=== PATIENT | female | born 1955 | race Caucasian/White ===

== ENCOUNTER 2025-04-18 13:54 | Emergency (ER) | payer MEDICARE, MEDICAID ==
[~2025-04-18] VITALS: Ht 167.6 cm; Wt 73.0 kg
[~2025-04-18 13:54] MED LIST: AMLO2.5T2 PO; ATOR40TA71 PO; DULO20CA50 PO; GABA-535 PO; HYDR-3686 PO; IPRA4AER INH; LOP25T PO; NALT50TA5 PO; PANT-47 PO
[2025-04-18 13:56] VITALS: BP 140/75; PULSE 88; RESP 20; O2SAT 95
--- NOTE | 2025-04-18 14:14 | Physician Documentation ---
History of Present Illness ~ Chief Complaint: ETOH Withdrawl Stated Complaint: ALCOHOL WITHDRAWAL Time Seen by MD: 14:03 Mode of Arrival: EMS, Stretcher HPI 69-year-old female presents to the ED with a complaint of ETOH withdrawal she states she drinks a half a gal of hard alcohol daily. His last drink that she had was 14 hours ago. Denies any history of seizure or tremors. But she says she has had some occasions where she has visual hallucinations. Primary complaint is shakiness and anxiety right now. She states she does want to drink but does not have a plan on how to stop drinking. Currently denies any chest pain nausea dizziness vomiting or seizures Tetanus within 5 years?: Yes Medication Reconciliation Allergies: Coded Allergies: cephalexin (Unverified Allergy, Unknown, 02/16/25) Scheduled Amlodipine* (Norvasc*), 1 TAB PO DAILY, (Reported) Atorvastatin Calcium (Atorvastatin Calcium), 1 TAB PO DAILY Chlordiazepoxide Hcl (Librium), 25 MG PO TID Duloxetine Hcl* (Cymbalta*), 20 MG PO DAILY, (Reported) Gabapentin (Gabapentin), 1 CAP PO Q8H, (Reported) Hydroxyzine Hcl* (Atarax*), 1 TAB PO BID, (Reported) Ipratropium/Albuterol Sulfate (Combivent Respimat Inhal Lead), 2 PUFFS INH Q8H, (Reported) Metoprolol Tartrate* (Lopressor tablet*), 25 MG PO BID Naltrexone Hcl (Naltrexone Hcl), 50 MG PO DAILY Pantoprazole Sodium (PROTONIX tablet), 1 TAB PO DAILY, (Reported) Past Medical History Past Medical History: No Pertinent History Patient History: FH: alcoholism FATHER Drug Use: none Lives In: Home Physical Exam Vital Signs: Heart Rate: 88, Respiratory Rate: 20, BP: 140/75, Pulse Oximetry: 95, Weight: 73.000 Oxygen Flow Rate: 0 Progress Results/Orders Results/Orders Completed Orders - ALEXANDER DAVIS NP Diazepam Inj (Valium Inj) (04/18/25 14:05) Normal Saline 1000ml (0.9% Sodium Chlori (04/18/25 14:05) Urinalysis, Cult If Indicated (04/18/25 14:03) Cbc/Diff (04/18/25 14:03) BMP (04/18/25 14:03) Lipase (04/18/25 14:03) CMP (04/18/25 14:03) Medications Received in ER Medications (Trade) Dose Ordered Sig/Vani Route PRN Reason Start Time Stop Time Status Last Admin Dose Admin (Valium inj) 10 mg ONCE ONCE IV 04/18/25 14:05 04/18/25 14:06 DC 04/18/25 14:24 10 MG (0.9% sodium chloride (NS) 1000ml IV soln) 1,000 ml ONCE ONCE IVB 04/18/25 14:05 04/18/25 14:06 DC 04/18/25 14:24 1,000 ML Vital Signs 04/18/25 04/18/25 13:56 14:02 Pulse 88 Resp 20 B/P (MAP) 140/75 Pulse Ox 95 O2 Flow Rate 0 Laboratory Tests Test 04/18/25 14:16 04/18/25 15:04 White Blood Count 7.8 Red Blood Count 3.55 L Hemoglobin 12.0 Hematocrit 34.6 L Mean Corpuscular Volume 97.3 Mean Corpuscular Hemoglobin 33.7 H Mean Corpuscular Hemoglobin Concent 34.7 Red Cell Distribution Width 14.2 Platelet Count 334 Mean Platelet Volume 5.7 L Neutrophils (%) (Auto) 63.0 Lymphocytes (%) (Auto) 27.6 Monocytes (%) (Auto) 8.4 Eosinophils (%) (Auto) 0.5 Basophils (%) (Auto) 0.5 Neutrophils # (Auto) 4.9 Lymphocytes # (Auto) 2.1 Monocytes # (Auto) 0.7 Eosinophils # (Auto) 0.0 Basophils # (Auto) 0.0 CBC Comment Sodium Level 138 Potassium Level 3.6 Chloride Level 100 Carbon Dioxide Level 28.3 Anion Gap 10 Blood Urea Nitrogen 11 Creatinine 0.69 Estimated GFR/1.73 m2 85 BUN/Creatinine Ratio 15.9 Glucose Level 109 H Calcium Level 9.2 Total Bilirubin 1.1 H Aspartate Amino Transf (AST/SGOT) 32 Alanine Aminotransferase (ALT/SGPT) 51 Alkaline Phosphatase 168 H Total Protein 8.3 H Albumin 4.0 Globulin 4.3 Albumin/Globulin Ratio 0.9 L Lipase 28 Chemistry Comments Urine Specimen Description Cln catch midstream Urine Color Yellow Urine Clarity Clear Urine pH 7.0 Urine Specific [place] 1.010 Urine Protein Negative Urine Glucose (UA) Negative Urine Ketones Negative Urine Occult Blood Negative Urine Nitrite Negative Urine Bilirubin Negative Urine Urobilinogen 0.2 Urine Leukocyte Esterase Negative Urine Culture Indicated Not ind Volume Urine Centrifuged 10 ml Urine Comment Medical Decision Making Findings Patient received fluids and 10 mg of Valium which appears to have stabilized her alcohol withdrawal she has not presented with more than mild tremulousness throughout her stay. I discussed treatment options with the patient and through shared decision-making we decided on a tapering dose of Librium to help her avoid [id number] alcohol withdrawal. He really needs to follow up in the outpatient setting because she was requesting various modalities that can not be followed up with in the ER. I discussed possible addiction Specialists locally. And gave her those resources. At this time, she presents safe for discharge with the Librium prescription. Differential Dx:Considerations: Intoxication - ETOH, Intoxication - other drug, Sub. Abuse -continuous, Sub. Abuse-intermittent, Skull fracture, Fracture - other bone, Personality disorder, Closed head injury, Cervical spine injury, Abrasion, Confusion, Hematoma, Laceration, Foreign body, Dehydration, Encephalopathy, Hepatitis, Pancreatitis, Thiamine deficiency, Other Departure Disposition: 01 HOME / SELF CARE / HOMELESS Impression: Primary Impression: Alcohol withdrawal syndrome Condition: Stable Discharge Instructions: Alcohol Intoxication, Alcohol Withdrawal Syndrome, [id number] Referrals: NO PRIMARY CARE PROVIDER (PCP) Prescriptions Chlordiazepoxide Hcl (Librium) 25 Mg Capsule 25 MG PO TID for alcohol withdrawl for 5 Days, #15 CAP 0 Refills Prov: ALEXANDER DAVIS NP 04/18/25 Education Educated: Patient Educated regarding: diagnosis Signature Scribe Signature: e Attestation: Scribed for Alexander Davis Oven Unloader by Alexander Blanc NP . 04/18/25 18:36 ALEXANDER DAVIS NP Apr 18, 2025 14:14
[2025-04-18 14:22] LABS: MEAN PLATELET VOLUME 5.7 FL (7.4-10.4); RED CELL DISTRIBUTION WIDTH 14.2 % (11.5-14.5)
[2025-04-18] MEDS: normal saline 1000ML IV soln IVB ONE (14:24)
[2025-04-18] MEDS: diazepam inj 5 MG/ML inj. IV ONE (14:24)
[2025-04-18 14:51] LABS: CREATININE 0.69 MG/DL (0.40-0.90); TOTAL CARBON DIOXIDE 28.3 MMOL/L (24-32); eCRCL 74 ML/MIN; eGFR 85 ML/MIN
[2025-04-18 15:12] LABS: LEUKOCYTE ESTERASE ,URINE NEGATIVE (Neg); NITRITES, URINE NEGATIVE (Neg); OCCULT BLOOD,URINE NEGATIVE (Neg)
[2025-04-18 15:13] LABS: UA COLLECTION TYPE CLN CATCH MIDSTREAM
[2025-04-18] MEDS ORDERED: CHLO25CA10 PO (16:05)
== END 2025-04-18 16:42 | disposition home or self-care (01) ==
LOC: ER 13:55
DX: F10.239 Alcohol dependence with withdrawal, unspecified (principal); F41.9 Anxiety disorder, unspecified; Z88.1 Allergy status to other antibiotic agents; Y90.9 Presence of alcohol in blood, level not specified
CPT/HCPCS: 36415; 80053; 81003; 83690; 85025; 96361; 96374; 99284; J3360; J7030